=== PATIENT | male | born 1955 | race Caucasian/White ===

== ENCOUNTER → 2019-05-18 | Outpatient (CLI) | payer OTHER ==
--- NOTE | 2019-05-18 12:53 | 2DMMODE ---
[place] [id number] 2 D/M-MODE ECHOCARDIOGRAM Name: CURTIS LEBLANC Room: [facility]#: [id number] Admission: 05/18/19 Attend Phys: Maximus Mcdaniel MD Discharge: Date of : 53 Date of Service: 05/18/19 1252 Report #: [id number] THIS REPORT FOR: cc: Jaime Tena MD, Kirk D. MD Blick, David R. MD [facility] ~ APPROVED REPORT Study performed: 05/18/2019 11:06:24 EXAM: Limited 2D Echocardiogram Patient Location: Out-Patient BSA: 2.37 HR: 72 bpm BP: 120/70 mmHg Other Information Study Quality: Good Indications Atrial Fibrillation Cardiomyopathy 2D Dimensions IVSd: 10.78 (7-11mm) LVDd: 54.05 mm PWd: 11.60 (7-11mm) LVDs: 34.17 (25-40mm) Aortic Root: 34.60 mm Left Ventricle The left ventricle is normal size. There is global hypokinesis of the left ventricle. There is normal left ventricular wall thickness. Left ventricular systolic function is mildly decreased. LVEF is 40-45%. Right Ventricle The right ventricular systolic function is normal. Pacemaker lead is present in the right ventricle. Atria Pacemaker lead is present in the right [place]rium[place] [address] 2 D/M-MODE ECHOCARDIOGRAM Name: CURTIS LEBLANC Room: [facility]#: [id number] Admission: 05/18/19 Attend Phys: Maximus Mcdaniel MD Discharge: Date of : 53 Date of Service: 05/18/19 1252 Report #: [id number] The aortic valve is normal in structure. Mitral Valve The mitral valve is normal in structure. Tricuspid Valve The tricuspid valve is normal in structure. Pulmonic Valve Pulmonic valve is not well visualized. Great Vessels The aortic root is normal in size. IVC is normal in size and collapses >50% with inspiration. Pericardium There is no pericardial effusion. <Conclusion> Left ventricular systolic function is mildly decreased. LVEF is 40-45%. There is no pericardial effusion. <ELECTRONICALLY SIGNED> By: Temo Nayak MD, FACC 05/18/19 1252 125 51 Temo Nayak MD, FACC /INF
== END ==
LOC: M.CRD 10:55
DX: I48.0 Paroxysmal atrial fibrillation (principal); I42.8 Other cardiomyopathies; I50.42 Chronic combined systolic (congestive) and diastolic (congestive) heart failure